=== PATIENT | male | born 1945 | race Caucasian/White ===

== ENCOUNTER 2016-12-25 10:04 | Inpatient (IN) | payer MEDICARE, BC ==
[~2016-12-25] VITALS: Ht 188 cm; Wt 102.4 kg
--- NOTE | ~2016-12-25 | ECH ---
Transesophageal Echocardiography Report (ELOY) Demographics Patient Name TELLO WHATLEY Date of Study 12/26/2016 Patient Number [id number] Visit Number [id number] Date of 1945 Room Number 408 Accession Number [id number] Gender Male Age 71 year(s) Referring Shaneka Wells MD [employer] Maia Malcolm [facility] Physician Physician Interpreting King Zion Whitt MD Paint Department Supervisor Physician Supervising Ordering Physician King Zion Whitt MD, MD/[facility] Nurse Lexi Rodgers Stress Referral Nurse The procedure was explained in detail to the patient. Risks, complications and alternative treatments were reviewed. Written consent was obtained. Conclusions Summary The estimated left ventricular ejection fraction is 60%. There is no thrombus in the left atrial appendage. Bubble study was done, there is no evidence for a PFO or ASD. No plaque seen in the thoracic aorta. Procedure Type of Study ELOY procedure:ELOY SF. Procedure Date Date: 12/26/2016 Start: 09:58 AM Technical Quality: Adequate visualization Indications:Atrial flutter. Appropriate Use Criteria: 9 Height: 74 inches Weight: 219 pounds BSA: 2.26 m Rhythm: Atrial flutter HR: 67 bpm BP: 124/72 mmHg ELOY Performed By: Tray Dobbs MD Procedure Informed Consent Procedure consent form obtained. - See IV sedation record - See anesthesia record Type of Anesthesia: Moderate sedation Findings Left Atrium There is no thrombus in the left atrial appendage. Bubble study was done, there is no evidence for a PFO or ASD. Mitral Valve Normal mitral valve structure and function. Mild mitral regurgitation by color Doppler. Aortic Valve Normal aortic valve structure and function. Tricuspid Valve Normal appearing tricuspid valve. Pulmonic Valve The pulmonic valve is not well visualized. Miscellaneous No plaque seen in the thoracic aorta. Signature
--- NOTE | ~2016-12-25 | ECH ---
Transthoracic Echocardiography Report (TTE) Demographics Patient Name TELLO WHATLEY Date of Study 12/25/2016 Patient Number [id number] Visit Number [id number] Date of 1945 Room Number 408 Accession Number [id number] Gender Male Age 71 year(s) Referring King Zion Whitt MD [employer] Supervisor Maia Malcolm [facility] Physician Shaneka Wells MD [facility]ician Interpreting [facility] Miss[employer] Inspector Physician MD Supervising Ordering Physician King Zion Whitt MD, MD/P Nurse Stress Physician Relations Manager Conclusions Summary Technically adequate exam. The estimated left ventricular ejection fraction is 55-60% in underlying atrial flutter. Moderate left ventricular hypertrophy. Mildly dilated right ventricle with normal systolic function. he interatrial septum appears aneurysmal. There is no evidence of patent foramen ovale or atrial septal defect by color Doppler. The right atrium is severely dilated. No significant valvular abnormalities. Procedure Type of Study TTE procedure:Echo Complete SF. Procedure Date Date: 12/25/2016 Start: 02:16 PM Technical Quality: Adequate visualization Indications:Atrial flutter. Appropriate Use Criteria: 9 Height: 74 inches Weight: 219 pounds BSA: 2.26 m Rhythm: Atrial flutter HR: 70 bpm BP: 117/87 mmHg M-Mode/2D Measurements LV Diastolic Dimension: 4.39 cm LV Systolic Dimension: 3.89 cm LV Septum Diastolic: 1.53 cm LV PW Diastolic: 1.37 cm AO Root Dimension: 3.31 cm Cardiac Output: 4.8 l/min LA Dimension: 4.47 cm Cardiac Index: 2.12 l/min*m RV Diastolic Dimension: 3.43 cm LA volume index: 32 ml/m LVOT: 2.32 cm LVOT VTI: 16.22 cm RV Base: 4.9 cm LV Stroke volume: 68.53 ml RV Mid: 4.1 cm LV Stroke volume index: 30.32 ml/m RV Length: 7.1 cm TAPSE: 2.2 cm TDI-S': 13 cm/s Doppler Measurements AV Peak Velocity: 1.1 m/s MV Peak E-Wave: 0.74 m/s AV Peak Gradient: 4.84 mmHg LVOT Peak Velocity: 0.83 m/s AV Area (Continuity):3.01 cm TR Velocity:1.86 m/s TR Gradient:13.81 mmHg Estimated PASP: 16.81 mmHg Estimated RAP:3 mmHg Estimated RVSP: 17 mmHg RA Area: 33.33 cm Findings Left Ventricle The left ventricle is normal in size . Moderate left ventricular hypertrophy. Diastolic function indeterminate due to patient's arrhythmia. Right Ventricle Mildly dilated right ventricle with normal systolic function. Left Atrium Normal left atrial size. The interatrial septum appears aneurysmal. There is no evidence of patent foramen ovale or atrial septal defect by color Doppler. Right Atrium The right atrium is severely dilated. Mitral Valve Normal mitral valve structure and function. Mild mitral regurgitation by color Doppler. Aortic Valve The aortic valve is mildly sclerotic. There is no aortic regurgitation by color Doppler. Tricuspid Valve Normal appearing tricuspid valve. Mild tricuspid regurgitation by color Doppler. Pulmonic Valve The pulmonic valve is not well visualized. Pericardial Effusion No evidence of pericardial effusion. Miscellaneous Visualized portions of the aortic root and ascending aorta appear normal in size. Pleural Effusion No evidence of pleural effusion. Contractility Score LV regional wall motion:(0-Non visualized 1-Normal 2-Hypokinesis 3-Akinesis 4-Dyskinesis 5-Aneurysm) Signature
--- NOTE | 2016-12-27 08:06 | HP ---
ADMIT: 12/25/2016 RM/LOC: 408 [facility] MR#: [id number] [address] [facility] [address] [place], [place] [address] [place] [address] History and Physical SEX: M AGE: 71 : 1945 DATE OF SERVICE: 12/25/2016 CHIEF COMPLAINT: Atrial flutter. HISTORY: Siva Emmanuel presented to our clinic today after being sent over from the outpatient surgery center where preoperatively ahead of a colonoscopy, he was found to be in atrial flutter with block. He was asymptomatic at that time and seems to be in the office. However, over the last 24 hours in association with a prep for colonoscopy, he developed some nausea and vomiting and cramps and pain and actually had a brief syncopal spell at home. This has not been an issue for him before. He has not had chest pain with any of this. He has not experienced any palpitations with this, and he has no known prior history of any cardiac arrhythmia. We did confirm with an EKG in our office that he was in atrial fibrillation with what appeared to be a 4:1 block with a ventricular rate of 75 and an atrial rate of 300. I discussed case with Dr. Quezada over the phone and it was mutually agreed that we would admit him to telemetry and consult Cardiology to further evaluate and treat this. PAST MEDICAL HISTORY: He has no known cardiac problems prior to any of this. He has dyslipidemia for which he is on medication. PAST SURGICAL HISTORY: Colonoscopy for colon polyps, hemorrhoidectomy, appendectomy, vasectomy. SOCIAL HISTORY: He is . 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 He does not smoke. Alcohol intake is uncertain. MEDICATIONS: 1. Aspirin 81 mg once a day. 2. Lipitor 20 mg daily. ALLERGIES: NONE. REVIEW OF SYSTEMS: CONSTITUTIONAL: He has not been systemically ill, not experiencing any chills or fever. ENT: No acute ear, nose, throat complaints. He has chronic hearing loss, wears hearing aids. EYES: Nothing acute. CARDIOVASCULAR: As above. RESPIRATORY: Not coughing or short of breath. GASTROINTESTINAL: Also as above. He never did get colonoscopy completed today. GENITOURINARY: No acute urinary complaints. MUSCLE, BONE, AND JOINT: No acute complaints. NEURO: Negative. PSYCH: Negative. HEMATOLOGIC: No history of bleeding or blood clots. PHYSICAL EXAMINATION: GENERAL: He is alert, in no acute distress, ADMIT: 12/25/2016 RM/LOC: 408 [facility] MR#: [id number] [address] [address] [place] [address] History and Physical SEX: M AGE: 71 : 1945 ambulatory. VITAL SIGNS: Taken in our office; blood pressure 118/70, pulse 73, temp 96.2, height 74, weight 224 pounds, O2 saturation 97% on room air. His usual weight is around 230 pounds, so he is probably a little bit dry from the colonoscopy prep. ENT: He wears hearing aids. No nasal discharge. Oral mucous membranes are moist. No oral lesions. EYES: Pupils are equal and reactive to light. Sclerae anicteric. NECK: No masses or tenderness. No thyromegaly. HEART: Rate does sound regular and I do not hear murmurs. A 12-lead EKG demonstrates atrial flutter with block. LUNGS: Clear to auscultation. Normal respiratory effort. ABDOMEN: Soft to palpation. No masses. No tenderness. No guarding. No rebound. RECTAL: Not performed. GENITALIA: Not examined. EXTREMITIES: Upper extremities, no gross abnormalities. Lower extremities, arthritic changes of his knees. No edema in his lower extremities. NEUROLOGIC: Alert and ambulatory. PSYCH: Not anxious, not depressed. LABORATORY AND X-RAY DATA: Now I have some labs back. He has a normal CBC, normal electrolytes. Creatinine is elevated slightly above baseline 1.8, baseline for him is about 1.3. GFR calculated at 37, his baseline is at 60. His TSH is normal. Cardiac enzymes were normal. Chest x-ray is normal. IMPRESSION: 1. Acute atrial flutter with block. 2. Presyncope probably secondary to vagal reaction from nausea and vomiting related to his colonoscopy prep. 3. He has some mild acute renal insufficiency probably secondary to some mild volume depletion. DISCUSSION: Cardiology has been consulted. We are going to hydrate him with normal saline to restore his fluids. We will follow with Cardiology. Fermin Munroe MD/ gerson JOB #: [id number] CC: Fermin Munroe, Attending Physician Fermin Munroe, Family Physician
--- NOTE | 2016-12-27 09:36 | CVR ---
ADMIT: 12/25/2016 RM/LOC: 408 [facility] MR#: [id number] [address] [address] TELLO [place] [address] Cardioversion Report SEX: M AGE: 71 : 1945 DATE: 12/26/2016 PROCEDURE: DC cardioversion. INDICATION: Patient is a 71-year-old male, who presented with atrial flutter at his colonoscopy. He had been admitted to the hospital after having a syncopal episode. We are now having him undergo a cardioversion. PROCEDURE IN DETAIL: After obtaining informed consent, the patient was sedated under Anesthesia's direction. A ELOY was performed and demonstrated no evidence of left atrial or left atrial appendage thrombus. At that point, after the ELOY was completed, he had further sedation used and a 100 joule synchronized cardioversion was performed. The patient converted to sinus rhythm after his first shock. ASSESSMENT AND PLAN: The patient will continue with his current medical treatment. He will need an outpatient stress test, outpatient trend oximetry, and monitoring for his syncopal episode. He will then follow up in 2-3 weeks. Zion Dobbs MD/ gerson JOB #: [id number] CC: Fermin Munroe, Attending Physician Fermin Munroe, Family Physician
[2016-12-27] MEDS ORDERED: LIPITOR DPS20 MG PO (17:53)
[2016-12-27] MEDS ORDERED: ASPIR 8181 MG PO (17:54)
[2016-12-27] MEDS ORDERED: XARELTO20 MG PO (17:54)
--- NOTE | 2017-01-02 15:58 | CO ---
ADMIT: 12/25/2016 RM/LOC: 408 [facility] MR#: [id number] [address] [address] [place] [address] Consultation SEX: M AGE: 71 : 1945 DATE OF CONSULTATION: 12/25/2016 ATTENDING PHYSICIAN: Fermin Munroe CONSULTING PHYSICIAN: Zion Dobsb MD REASON FOR CONSULT: Atrial flutter, new onset. Vonnie Sow RN, scribing for Dr. Zion Dobbs. HISTORY OF PRESENT ILLNESS: Siva is a pleasant 71-year-old gentleman I have been asked to see in Cardiology consultation for new onset atrial flutter. He has no prior history of coronary artery disease. Denies any previous history of cardiac workup. He does have history of hyperlipidemia and takes atorvastatin at home for that along with aspirin are his only medications. Siva presented to [facility] directly from the surgery Center today after having new onset atrial flutter. He was having colonoscopy prep for his routine exam. When he presented to the surgery center today, he was found to be in atrial flutter with heart rates in the 70s. He also reported to his primary care physician the last night he had significant nausea and vomiting during the evening and he felt extremely weak. He had not eaten for 2 days because of his prep. He had remained doing his exercise routine which included vigorous exercise with pickleball and tennis. He also reports that he regularly plays basketball and softball as well. He had no chest discomfort or any change in symptoms with those activities. However, he got home yesterday from playing pickleball, and he was extremely weak. He said that he had trouble after bath getting from his bed back to the bathroom during his prep and actually passed out while sitting on the toilet. He broke the toilet at that point as well. He feels that he was only out for a minute or so as his had left the room and came back. He denies any further episodes of syncope, but continued to feel weak and nauseous during the evening. When he presented to the Surgery Center this morning, he was completely asymptomatic denying any further episodes of weakness, shortness of breath, or lightheadedness. His procedure was canceled and he was transferred to [facility]. Lab work was drawn which demonstrated elevated creatinine of 1.8. Cardiac enzymes were essentially negative as well as thyroid studies. CBC was essentially negative and chest x-ray was normal. EKG shows that he continues to be in atrial flutter with heart rate in the 70s. He is asymptomatic at this time. PAST MEDICAL HISTORY: Hyperlipidemia. PAST SURGICAL HISTORY: Includes hemorrhoidectomy and appendectomy. ALLERGIES: NO KNOWN MEDICATION ALLERGIES. MEDICATIONS: Current medications include: ADMIT: 12/25/2016 RM/LOC: 408 [facility] MR#: [id number] [address] [place] [id number] SIVA WHATLEY [address] [place] [address] Consultation SEX: M AGE: 71 : 1945 1. Aspirin 81 mg at bedtime. 2. Atorvastatin 20 mg p.o. at bedtime. FAMILY HISTORY: Positive family history of cancer in mother. Denies family history of heart disease, diabetes, or stroke. SOCIAL HISTORY: Siva is . He lives at home with his . 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 He drinks 1 glass of wine with dinner every night. He denies any special diet, caffeine, history of drug use or tobacco use. REVIEW OF SYSTEMS: GENERAL: Denies fatigue, fever, chills, sweats, rash, or weight loss. EYES: Denies double vision, blurred vision, cataracts, or glaucoma. ENT: Denies hearing loss or problems with nose, mouth or throat. PULMONARY: Denies cough, sputum production, asthma, emphysema or bronchitis. Denies snoring loudly, wakefulness at night, or fatigue upon awakening. GASTROINTESTINAL: Denies heartburn or difficulty swallowing. No change in bowel habits. Denies dark or bloody stools. No history of ulcers, hiatal hernia, or gallbladder or liver disease. GENITOURINARY: Denies dysuria, hematuria, nocturia, urinary tract infection, or kidney stones. Denies history of renal insufficiency or failure. MUSCULOSKELETAL: Denies history of arthritis or gout. Denies muscle or joint pains. ENDOCRINE: Denies history of thyroid dysfunction or diabetes. HEMATOLOGIC: Denies history of anemia, easy bruising, or cancer. NEUROLOGIC: Denies chronic headaches, dizziness, syncope, stroke, seizures or numbness or tingling. PSYCHIATRIC: Denies history of mental illness or feelings of depression. PHYSICAL EXAM: VITAL SIGNS: 117/87, heart rate 71, respirations 18, temperature 96.5, and oxygenation 98% on room air. SKIN: [place], warm and dry. EYES: Sclerae clear. No xanthelasmas. ENT: Oral mucosa is pink and moist. No jugular venous distention or carotid bruits. HEART: Irregularly irregular. No murmurs, gallops, or rubs. LUNGS: Decreased breath sounds bilaterally. ABDOMEN: Soft and nontender. MUSCULOSKELETAL: Gait is normal. EXTREMITIES: Peripheral pulses palpable. No clubbing, cyanosis or edema. PSYCHIATRIC: Alert and oriented. Mood and affect are appropriate. DIAGNOSTIC DATA: Chest x-ray showed no acute abnormalities. White blood cell count 8.5, hemoglobin 15.4, hematocrit 44.6, and platelets 213. Sodium 139, potassium 4.1, BUN 24, creatinine 1.8, glucose 90, AST 21, ALT 31, magnesium 2.3. CK 159, MB 5.0. Troponin less than 0.015. Free T4 of 0.98 and TSH 1.94. EKG demonstrates atrial flutter, 4:1 block. ADMIT: 12/25/2016 RM/LOC: 408 [facility] MR#: [id number] [address] [place] [id number] [place] [address] Consultation SEX: M AGE: 71 : 1945 ASSESSMENT/PLAN: 1. Atrial flutter question new onset. 2. Syncopal episode. 3. Hyperlipidemia. Syncope sounds like it may have been vagal given his dehydration and nausea and vomiting. He had one episode and has not had any recurrent episodes of syncope. I will check echocardiogram to evaluate for any wall motion abnormalities, valvular abnormalities, or decreased ejection fraction as well as to measure his left atrium. I would also recommend doing outpatient monitor to see what his heart rhythm does on a longer basis. With his atrial flutter, I will check labs along with his echocardiogram as well. If this does look okay, I would recommend ELOY cardioversion in the morning and I will keep him n.p.o. after midnight in anticipation of that. I discussed with him that he will also need to be on anticoagulation, I will start him on Xarelto p.o. daily 20 mg, and down the line plan stress test as an outpatient. I will continue to follow him closely. Thank you for the consultation. "I have read and agree with the documentation that has been completed regarding this visit. By signing this record, I attest that the documentation was completed in my physical presence and is an accurate record of the encounter." Vonnie Sow RN / Zion Dobbs MD / gerson JOB #: [id number] CC: Fermin Munroe, Attending Physician Fermin Munroe, Family Physician
--- NOTE | 2017-02-02 13:24 | DS ---
ADMIT: 12/25/2016 RM/LOC: 408 [facility] MR#: [id number] [address] [facility] [address] [place], [place] [address] [facility] [place] [address] General Discharge Summary SEX: M AGE: 71 : 1945 ADMISSION DATE: 12/25/2016 DISCHARGE DATE: 12/26/2016 FINAL DIAGNOSES: 1. Acute atrial flutter with 4:1 block. 2. Probable volume depletion from colonoscopy prep with associated mild acute renal impairment, improving on discharge. 3. Syncopal event related to above. BRIEF NARRATIVE: This patient was admitted to Acute Care due to the above factors. He was found to be in atrial flutter prior to a colonoscopy. He had had a brief syncopal episode as per the colonoscopy prep. No prior history of cardiac issues. In our office, he was found to be in atrial flutter with 4:1 block with stable vital signs. His creatinine was elevated above baseline at 1.8, baseline for him is 1.3. This improved with hydration in the hospital at 1.5. Cardiology saw him in consultation and he had successful cardioversion performed after a ELOY done the morning after admission. Cardiology felt he could be released. He was dismissed on aspirin, Lipitor, Xarelto. Follow up with Family Practice SaturdayDecember 31, and he also had followup plan at [facility], although at the time of this dictation, I am uncertain of the date of that. Fermin Munroe MD/ gerson JOB #: [id number] CC: Fermin Munroe MD, Attending Physician Fermin Munroe MD, Family Physician
== END 2016-12-26 15:29 | disposition home or self-care (01) | DRG 309 ==
LOC: 4PCU 10:04
PROVIDERS: ADMIT Family Medicine
PROC: 5A2204Z Restoration of Cardiac Rhythm, Single (ICD-10-PCS; principal; 2016-12-26)
PROC: B24BZZ4 Ultrasonography of Heart with Aorta, Transesophageal (ICD-10-PCS; principal; 2016-12-26)
DX: I48.92 Unspecified atrial flutter (principal); N17.9 Acute kidney failure, unspecified; E86.0 Dehydration; E78.5 Hyperlipidemia, unspecified; I45.5 Other specified heart block; Z79.82 Long term (current) use of aspirin